=== PATIENT | male | born 1975 | race Caucasian/White ===

== ENCOUNTER 2020-06-23 14:20 | Emergency (ER) | payer MEDICAID, MEDICARE ==
[~2020-06-23] VITALS: Ht 167.6 cm; Wt 120.0 kg
[2020-06-23 14:24] VITALS: BP 156/90
[2020-06-23] MEDS ORDERED: BUPIVAcaine 0.25% w/Epi /PF 30ml vial IJ ONE (14:40)
[2020-06-23] MEDS ORDERED: bupivacaine 0.25%/epinephrine 1:200,000 inj (contains preserv. MDV) IJ ONE (14:50)
--- NOTE | 2020-06-23 16:30 | NUR ---
PATIENT SEEN AND TREATED BY PROVIDER FOR C/O TOOTH PAIN.
== END 2020-06-23 16:31 | disposition home or self-care (01) ==
LOC: EDBD 14:21 → ER 14:21
DX: K08.89 Other specified disorders of teeth and supporting structures (principal); Z88.0 Allergy status to penicillin
CPT/HCPCS: 64400; 64450; 99284

== ENCOUNTER 2023-05-13 10:47 | Day surgery (SDC) | payer MEDICARE, MEDICAID ==
[2023-05-12 14:26] LABS: BASOPHILS # (AUTO) 0.1 X10'3 (0-0.2); BASOPHILS % (AUTO) 0.9 % (0-1); EOSINOPHILS # (AUTO) 0.2 X10'3 (0-0.9); EOSINOPHILS % (AUTO) 1.6 % (0-6); LYMPHOCYTES # (AUTO) 2.8 X10'3 (1.1-4.8); LYMPHOCYTES % (AUTO) 28.3 % (21-51); MEAN CORPUSCULAR HEMOGLOBIN 29.7 PG (27.0-31.0); MEAN CORPUSCULAR HGB CONC 33.4 g/dL (33.0-36.5); MEAN CORPUSCULAR VOLUME 88.8 FL (78-98); MEAN PLATELET VOLUME 8.9 FL (7.4-10.4); MONOCYTES # (AUTO) 0.6 X10'3 (0-0.9); MONOCYTES % (AUTO) 5.7 % (2-12); NEUTROPHILS # (AUTO) 6.3 X10'3 (1.8-7.7); NEUTROPHILS % (AUTO) 63.5 % (42-75); PRE OP HEMATOCRIT 47.5 % (42.0-52.0); PRE OP HEMOGLOBIN 15.9 g/dL (14.0-17.9); PRE OP PLATELET COUNT 280 X10'3 (140-440); PRE OP WHITE BLOOD COUNT 9.9 10'3 (4.8-10.8); RED BLOOD COUNT 5.35 X10'6 (4.70-6.10); RED CELL DISTRIBUTION WIDTH 14.6 % (11.5-14.5)
[2023-05-12 14:41] LABS: BILIRUBIN,URINE NEGATIVE (Neg); CLARITY,URINE CLEAR (Clear); COLOR,URINE YELLOW (Yellow); GLUCOSE, URINE NEGATIVE (Neg); KETONES,URINE NEGATIVE (Neg); LEUKOCYTE ESTERASE ,URINE NEGATIVE (Neg); NITRITES, URINE NEGATIVE (Neg); OCCULT BLOOD,URINE NEGATIVE (Neg); PROTEIN,URINE NEGATIVE (Neg); UROBILINOGEN,URINE 0.2 E.U/dL (0.2-1.0)
[2023-05-12 14:44] LABS: UA COLLECTION TYPE CLN CATCH MIDSTREAM
[2023-05-12 15:21] LABS: HEMOGLOBIN A1C 5.3 % (4.5-6.2)
[2023-05-12 16:54] LABS: ALBUMIN 4.2 G/DL (3.4-5.0); ALBUMIN/GLOBULIN RATIO 1.1 (1.1-1.5); ALKALINE PHOSPHATASE 102 IU/L (46-116); BLOOD UREA NITROGEN 14 MG/DL (7-18); CALCIUM 9.5 MG/DL (8.5-10.1); CHLORIDE 101 MMOL/L (99-107); PRE OP ALT 25 U/L (30-65); PRE OP ANION GAP 8 (8-16); PRE OP AST 13 U/L (10-37); PRE OP BILIRUB, TOTAL 0.6 MG/DL (0.0-1.0); PRE OP GLUCOSE 86 MG/DL (70-104); PRE OP POTASSIUM 4.5 MMOL/L (3.4-5.1); PRE OP SODIUM 138 MMOL/L (135-145); TOTAL CARBON DIOXIDE 29.1 MMOL/L (24-32); TOTAL PROTEIN 8.2 G/DL (6.4-8.2); eGFR 79 ML/MIN
[2023-05-13] VITALS (18 sets, daily range): BP systolic 99–153; BP diastolic 60–93; PULSE 59–81; RESP 13–17; TEMP 98.6; O2SAT 96–100
[~2023-05-13] VITALS: Ht 167.6 cm; Wt 112.1 kg
[~2023-05-13 10:47] MED LIST: APIX5TAB3 PO; BUPR900F3 PO; ERGO500056 PO
[2023-05-13] MEDS: famotidine 20mg tablet PO ONE (11:36)
[2023-05-13] MEDS: ringers solution, lacted 1,000 ML IV SCH (11:37)
[2023-05-13] MEDS: vancomycin/NS 1 GM in NS 250 ML IV ONE (11:38)
[2023-05-13] MEDS ORDERED: ondansetron/PF 4mg/2ml inj ONE (12:08)
[2023-05-13] MEDS ORDERED: sevoflurane 250ml liquid IH ONE (12:08)
[2023-05-13] MEDS ORDERED: midazolam 1 mg/ML 2ml injection ONE (12:09)
[2023-05-13] MEDS ORDERED: ringers solution, lacted 1,000 ML IV SCH (12:30)
[2023-05-13] MEDS ORDERED: proCHLORperazine 10 MG/2 ml inj IV PRN (12:30)
[2023-05-13] MEDS ORDERED: morphine 2 MG/ML inj. syringe IV PRN (12:30)
[2023-05-13] MEDS ORDERED: labetalol 20mg/4ml (5mg/ml) syringe IV PRN (12:30)
[2023-05-13] MEDS ORDERED: ondansetron/PF 4mg/2ml inj IV PRN (12:30)
[2023-05-13] MEDS ORDERED: meperidine/PF 25mg/ml syringe IV PRN ×2 (12:30)
[2023-05-13] MEDS ORDERED: hydrALAZINE 20mg/ml inj. IV PRN (12:30)
[2023-05-13] MEDS ORDERED: fentaNYL /PF 50mcg/ml 5ml ampule ONE (12:34)
[2023-05-13] MEDS ORDERED: vancomycin 1,000mg inj ONE (12:34)
[2023-05-13] MEDS ORDERED: LIDOcaine 2% (20mg/ml) 5ml vial ONE (12:39)
[2023-05-13] MEDS ORDERED: propofol inj 20 ML IV ONE (12:39)
[2023-05-13] MEDS ORDERED: 0.9 % SODIUM CHLORIDE 10 ML VIAL ONE ×2 (12:40→12:49)
[2023-05-13] MEDS ORDERED: dexamethasone sod phosphate 4mg/ml inj. ONE (12:40)
[2023-05-13] MEDS ORDERED: morphine 10mg/ml inj. ONE (12:41)
[2023-05-13] MEDS ORDERED: ePHEDrine 50MG/ML INJ. ONE (12:50)
[2023-05-13] MEDS: BUPIVAcaine 2.5mg/ml inj 50ml vial (contains preservative) ONE (13:00)
[2023-05-13] MEDS ORDERED: acetaminophen 1,000mg/100ml IV 100 ML IV ONE (13:08)
[2023-05-13] MEDS: meperidine/PF 25mg/ml syringe IV PRN (13:16)
[2023-05-13] MEDS: acetaminophen 1,000mg/100ml IV 100 ML IV ONE (13:17)
[2023-05-13] MEDS: morphine 4 MG/ML inj SYRINge IV PRN (13:26)
[2023-05-13] MEDS: HYDROcodone/acetaminophen 10/325mg tab PO ONE (13:36)
== END 2023-05-13 17:15 | disposition home or self-care (01) ==
LOC: PAS 10:47
PROVIDERS: ATTEND Podiatrist Foot & Ankle Surgery
DX: M20.12 Hallux valgus (acquired), left foot (principal); M20.22 Hallux rigidus, left foot; M19.072 Primary osteoarthritis, left ankle and foot; G47.33 Obstructive sleep apnea (adult) (pediatric); J45.909 Unspecified asthma, uncomplicated; F32.A Depression, unspecified; G62.9 Polyneuropathy, unspecified; E66.9 Obesity, unspecified; Z68.39 Body mass index [BMI] 39.0-39.9, adult; Z88.5 Allergy status to narcotic agent; Z79.01 Long term (current) use of anticoagulants; Z79.899 Other long term (current) drug therapy; Z98.890 Other specified postprocedural states; Z87.891 Personal history of nicotine dependence; Z72.89 Other problems related to lifestyle; Z86.718 Personal history of other venous thrombosis and embolism; Z88.0 Allergy status to penicillin
CPT/HCPCS: 20900; 28750; 36415; 73620; 80053; 81003; 82306; 82948; 83036; 85025; 93005; A6223; C1713; J0131; J1100; J2175; J2250; J2270; J2274; J2405; J2704; J3010; J3370; J3490; J7030; J7120; Z7506; Z7508; Z7512; 76000; A4215; A4615; A4618; A6449; A7000